=== PATIENT | female | born 1990 | race Caucasian/White ===

== ENCOUNTER 2018-01-15 18:21 | Emergency (ER) | payer BC ==
[~2018-01-15] VITALS: Ht 160 cm; Wt 129.0 kg
[2018-01-15] MEDS ORDERED: LIBRIUM25 MG PO (20:52)
[2018-01-15 21:59] VITALS: BP 134/86
== END 2018-01-15 21:59 | disposition home or self-care (01) ==
LOC: EME 18:21
DX: F10.239 Alcohol dependence with withdrawal, unspecified (principal); Y90.0 Blood alcohol level of less than 20 mg/100 ml; F32.9 Major depressive disorder, single episode, unspecified; F41.9 Anxiety disorder, unspecified; F17.200 Nicotine dependence, unspecified, uncomplicated
CPT/HCPCS: 99281; 99285; G0480; J2060; J7030